=== PATIENT | female | born 1980 | race Caucasian/White ===

== ENCOUNTER → 2020-09-15 | Outpatient (CLI) | payer BC, OTHER ==
[~2020-09-15] MED LIST: CLEOCIN HCL300 MG PO
== END ==
LOC: MRI 08:53
DX: M47.814 Spondylosis without myelopathy or radiculopathy, thoracic region (principal); M40.209 Unspecified kyphosis, site unspecified; M54.6 Pain in thoracic spine
CPT/HCPCS: 72146

== ENCOUNTER → 2021-03-14 | Outpatient (CLI) | payer BC, OTHER | LOC: EXRD 14:09 | DX: M54.5 Low back pain (principal); M41.9 Scoliosis, unspecified; M51.34 Other intervertebral disc degeneration, thoracic region | CPT/HCPCS: 72070; 72100 ==

== ENCOUNTER → 2021-04-05 | Outpatient (CLI) | payer BC, OTHER | LOC: MRI 03-23 13:00 | DX: M41.80 Other forms of scoliosis, site unspecified (principal); M54.5 Low back pain; M47.814 Spondylosis without myelopathy or radiculopathy, thoracic region; M48.04 Spinal stenosis, thoracic region; M47.816 Spondylosis without myelopathy or radiculopathy, lumbar region | CPT/HCPCS: 72146; 72148 ==

== ENCOUNTER → 2021-04-18 | Outpatient (CLI) | payer BC, OTHER | LOC: US 10:00 | DX: N83.201 Unspecified ovarian cyst, right side (principal); N83.202 Unspecified ovarian cyst, left side; Z90.710 Acquired absence of both cervix and uterus | CPT/HCPCS: 76830 ==

== ENCOUNTER → 2021-10-23 | Outpatient (CLI) | payer BC, OTHER | LOC: EXRD 15:31 | DX: M25.561 Pain in right knee (principal); M25.562 Pain in left knee | CPT/HCPCS: 73564 ==